=== PATIENT | male | born 1960 | race Caucasian/White ===

== ENCOUNTER 2020-05-21 12:16 | Outpatient (CLI) | payer BC, SELFPAY ==
--- NOTE | 2020-05-21 12:24 | ECHO_ITS ---
Patient Info Name: Dannie Calles Age: 59 years : 1960 Gender: Male Ht: 70 in Wt: 190 lbs BSA: 2.08 m2 HR: 77 bpm BP: 150 / 76 mmHg Heart Rhythm: Sinus Rhythm Technical Quality: Good Exam Date: 05/21/2020 11:30 AM Exam Location: [facility] Patient Status: Outpatient Admit Date: 05/21/2020 Staff Ordering Physician: Hao Hair MD Manager Payment: Deb Balderas RDCS Attending Provider: Hao Hair MD Exam Type: CA echo doppler color flow Study Info Indications R94.31 - Abnormal electrocardiogram ECG EKG Complete two-dimensional, color flow and Doppler transthoracic echocardiogram is performed. Strain analysis performed. History/Risk Factors Hypertension: No Dyslipidemia: No Congenital Heart Disease (CHD): No Peripheral Arterial Disease (PAD): No Myocardial Infarction (VT): No Chronic Lung Disease: No Obesity: No Renal Disease: No Coronary Artery Disease (CAD) No Congestive Heart Failure (CHF): No Cardiomyopathy/LV Systolic Dysfunction: No Diabetes Mellitus: No COPD: No Tobacco Use: Never Cerebrovascular Disease: No Family History: Diabetes Mellitus Deep Vein Thrombosis (DVT): None Dialysis: None Frailty Scale (CSHA): 1: Very Fit Cardiac Arrest: No Summary 1. Complete two-dimensional, color flow and Doppler transthoracic echocardiogram is performed. 2. Left ventricular chamber dimension is normal. 3. Left ventricular systolic function is normal, estimated at 60-65%. 4. There is mildly increased left ventricular wall thickness. 5. The left ventricular diastolic function is grade II diastolic dysfunction. 6. E/e' 10 is mildly elevated. 7. Global longitudinal strain is abnormal at -14.6%. 8. Left atrial chamber dimension is mildly enlarged. 9. There is trace tricuspid valve regurgitation. 10. No pulmonary hypertension, estimated pulmonary arterial systolic pressure is 27 mmHg. Left Ventricle E/e' 10 is mildly elevated. Global longitudinal strain is abnormal at -14.6%. Left ventricular chamber dimension is normal. Left ventricular systolic function is normal, estimated at 60-65%. There is mildly increased left ventricular wall thickness. The left ventricular diastolic function is grade II diastolic dysfunction. Right Ventricle Right ventricular chamber dimension is normal. Right ventricular systolic function is normal. Left Atria Left atrial chamber dimension is mildly enlarged. Right Atria Right atrial chamber dimension is normal. Aortic Valve The aortic valve is trileaflet. There is no aortic valve stenosis. There is no aortic valve regurgitation. Pulmonic Valve There is no pulmonic regurgitation. Mitral Valve There is no mitral valve stenosis. There is no mitral valve regurgitation. Tricuspid Valve There is trace tricuspid valve regurgitation. No pulmonary hypertension, estimated pulmonary arterial systolic pressure is 27 mmHg. Pericardium/Pleural There is no pericardial effusion. Inferior Vena Cava Normal inferior vena cava with >50% collapse upon inspiration consistent with normal right atrial pressure, 5 mmHg. Aorta The aortic root size at the sinus of Valsalva is normal. Left Ventricular Outflow Tract Name Value Normal
== END 2020-05-21 12:17 | disposition home or self-care (01) ==
LOC: CHSIMG 12:18
PROVIDERS: PCP Internal Medicine; Visit Provider Internal Medicine
DX: R94.31 Abnormal electrocardiogram [ECG] [EKG] (principal); I10 Essential (primary) hypertension
CPT/HCPCS: 93306

== ENCOUNTER 2020-06-17 08:17 | Outpatient (CLI) | payer BC, SELFPAY ==
--- NOTE | ~2020-06-17 | MR_ITS ---
EXAMINATION: MR brain/brain stem wo con DATE: 06/17/2020 08:54 INDICATION: Headache. TECHNIQUE: Magnetic resonance imaging (MRI) of the brain and brainstem was performed without intraven ous contrast. Sequences included sagittal and axial T1-weighted FSE, axial diffusion-weighted FS EPI, axial T2*-weighted GRE, axial T2-weighted FLAIR Propeller, and axial T2-weighted Propeller. Apparent diffusion coefficient (ADC) maps were created. COMPARISON: None. FINDINGS: There are 2 punctate foci of nonspecific increased T2-weighted signal intensity in the cere bral white matter, which is within normal limits for the patient's age. There is no intracranial hemo rrhage, acute infarction, or abnormal intracranial mass lesion. The ventricles are normal in size. Th ere is mucosal thickening in the paranasal sinuses. There are small bilateral mastoid effusions. The orbits are normal. IMPRESSION: 1. Normal brain. Reviewed, dictated and finalized at location A. IMPRESSION: 1. Normal brain.
== END 2020-06-17 08:18 | disposition home or self-care (01) ==
PROVIDERS: PCP Internal Medicine; Visit Provider Internal Medicine
DX: R51.9 Headache, unspecified (principal)
CPT/HCPCS: 70551

== ENCOUNTER 2021-02-22 09:57 | Outpatient (CLI) | payer BC, SELFPAY ==
[2021-02-22 10:49] LABS: Influenza A QL RT-PCR Negative (Negative); Influenza B QL RT-PCR Negative (Negative); SARS-CoV-2 RNA PCR Negative (Negative)
== END 2021-02-22 09:58 | disposition home or self-care (01) ==
PROVIDERS: PCP Internal Medicine; Visit Provider Internal Medicine
DX: J06.9 Acute upper respiratory infection, unspecified (principal)
CPT/HCPCS: 87502; C9803; U0003; U0005

== ENCOUNTER 2021-03-08 14:59 | Outpatient (CLI) | payer BC, SELFPAY ==
[2021-03-08 17:13] LABS: Influenza A QL RT-PCR Negative (Negative); Influenza B QL RT-PCR Negative (Negative); SARS-CoV-2 RNA PCR Positive (Negative)
== END 2021-03-08 15:00 | disposition home or self-care (01) ==
LOC: CHSLAB 15:02
PROVIDERS: PCP Internal Medicine; Visit Provider Internal Medicine
DX: U07.1 COVID-19 (principal)
CPT/HCPCS: 87502; C9803; U0003; U0005

== ENCOUNTER 2021-04-13 13:53 | Outpatient (CLI) | payer BC, SELFPAY ==
--- NOTE | ~2021-04-13 | XR_ITS ---
EXAMINATION: XR shoulder RT min 2V EXAM DATE: 04/13/2021 14:16 INDICATION: Fall On Ice 04/12/2021 Pain To Shoulder And Unable To . TECHNIQUE: The following right shoulder projections obtained: frontal projection with internal rotati on, frontal projection with external rotation, Grashey, and scapular Y view (4+ views). There is no prior study for comparison. FINDINGS: There is mild glenohumeral joint, moderate acromioclavicular joint primary osteoarthritis. Slightly abrupt contour at the greater tuberosity, possible acute closed posttraumatic nondisplaced f racture. Glenoid is unremarkable. There is no subcutaneous gas. The soft tissue is unremarkable. T here are no radiopaque foreign bodies. IMPRESSION: Possible greater tuberosity fracture; CT scan without contrast recommended. Reviewed, dictated and finalized at location B. L[employer]ER IMPRESSION: Possible greater tuberosity fracture; CT scan without contrast laney mmended.
== END 2021-04-13 13:54 | disposition home or self-care (01) ==
LOC: CHSIMG 13:56
PROVIDERS: PCP Internal Medicine; Visit Provider Internal Medicine
DX: M25.511 Pain in right shoulder (principal)
CPT/HCPCS: 73030

== ENCOUNTER 2023-05-11 09:54 | Outpatient (CLI) | payer BC, SELFPAY ==
[2023-05-11 10:10] LABS: Basophils Absolute Auto 0.05 K/mm3 (0.00-0.10); Basophils Percent Auto 0.8 % (0.0-1.0); Eosinophils Absolute Auto 0.17 K/mm3 (0.02-0.50); Eosinophils Percent Auto 2.7 % (1.0-6.0); Immature Granulocyte Absolute 0.02 K/mm3 (0.00-0.00); Immature Granulocyte Percent A 0.3 % (0.0-0.0); Lymphocytes Absolute Auto 2.09 K/mm3 (1.10-4.50); Lymphocytes Percent Auto 32.8 % (18.0-42.0); Mean Corpuscular HGB Conc 34.1 g/dL (32.0-36.0); Mean Corpuscular Hemoglobin 30.2 pg (27.0-31.0); Mean Corpuscular Volume 88.5 fL (78.0-102.0); Mean Platelet Volume 8.7 fl (8.7-11.0); Monocytes Percent Auto 9.4 % (2.0-11.0); Neutrophils Absolute Auto 3.5 K/mm3 (1.7-7.2); Platelet Count Result 262 K/mm3 (150-420); Red Blood Count 4.97 M/mm3 (4.70-6.10); White Blood Count 6.4 K/mm3 (4.8-10.8)
[2023-05-11 10:11] LABS: Appearance Urine Clear (Clear); Bilirubin Urine Negative (Negative); Blood Urine Negative (Negative); Color Urine Light Yellow (Yellow); Glucose Urine UA Negative (Negative); Ketones Urine Negative (Negative); Leukocyte Esterase Ur Negative (Negative); Nitrate Urine Negative (Negative); Protein Urine Negative (Negative); Urobilinogen Urine 0.2 mg/dL (0.2-1.0)
[2023-05-11 10:19] LABS: Add Urine Microscopic? NO
[2023-05-11 11:28] LABS: Alanine Aminotransferase 63 U/L (16-63); Albumin Level 3.9 g/dL (3.4-5.0); Alkaline Phosphatase 113 U/L (46-116); Anion Gap 10 mmol/L (8-16); Aspartate Amino Transferase 24 U/L (15-37); Bilirubin,Total 1.3 mg/dL (0.00-1.00); Blood Urea Nitrogen 17 mg/dL (7-18); Carbon Dioxide 28 mmol/L (21-32); Chloride 103 mmol/L (98-108); Cholesterol 197 mg/dL (0-200); Estimated Glomerular Filt Rate > 60; Glucose 91 mg/dL (70-99); HDL Direct 65 mg/dL (40-60); LDL Cholesterol Calculated 120 mg/dL (<130); Osmolality Calculated 293 mOsm/kg (285-295); Potassium 4.4 mmol/L (3.5-5.1); Prostate Specific Antigen 1.3 ng/mL (< OR = 4.0); Sodium 141 mmol/L (136-145); Total Protein 6.9 g/dL (6.4-8.2); Triglycerides 61 mg/dL (0-150)
[2023-05-14 19:56] LABS: Hepatitis A Antibody IgM Nonreactive; Hepatitis B Core Antibody Nonreactive (Nonreactive); Hepatitis B Surface Antigen Nonreactive (Nonreactive); Hepatitis C Virus Antibody Nonreactive
== END 2023-05-11 09:55 | disposition home or self-care (01) ==
PROVIDERS: PCP Internal Medicine; Visit Provider Internal Medicine
DX: Z00.00 Encounter for general adult medical examination without abnormal findings (principal); I10 Essential (primary) hypertension; R94.5 Abnormal results of liver function studies
CPT/HCPCS: 36415; 80053; 80061; 80074; 81003; 84153; 85025; G0103

== ENCOUNTER 2024-01-30 01:12 | Day surgery (SDC) | payer BC, SELFPAY ==
[2024-01-17 08:22] VITALS: BMI 26.9
[2024-01-30 09:39] VITALS: BP 145/86; PULSE 58; RESP 18; TEMP 35.9; O2SAT 96
[2024-01-30] MEDS: LACTATED RINGERS 1,000 ML 150 ML IV CONT (09:49)
--- NOTE | 2024-01-30 10:36 | PM.IMHP ---
H&P: HPI History of Present Illness Date/Time: 01/30/24 10:36 Chief Complaint: History of colon polyps Narrative: this is a 63-year-old man who presents for colonoscopy. His last colonoscopy was about 7 years ago. He denies any hematochezia or melena. He denies family history of colon cancer. Review of Systems Review of Systems: All systems reviewed & are unremarkable except as noted in HPI and below Constitutional: Constitutional: Denies chills, Denies fever(s), Denies headache(s) and Denies weight loss Eyes: Eyes: Denies change in vision ENT: Denies dizziness, Denies headache(s), Denies neck mass and Denies throat swelling Cardiovascular: Cardiovascular: Denies chest pain, Denies lightheadedness and Denies dyspnea Respiratory: Respiratory: Denies cough, Denies dyspnea and Denies wheezing Gastrointestinal: Gastrointestinal: Denies abdominal pain, Denies change in bowel habits, Denies nausea and Denies vomiting Genitourinary: Genitourinary: Denies hematuria and Denies dysuria Musculoskeletal: Musculoskeletal: Reports as per HPI Integumentary/Breasts: Skin/Breast: Reports as per HPI Neurologic: Denies dizziness and Denies headache(s) Allergic/Immunologic: Allergic/Immunologic: Denies throat swelling and Denies wheezing PMFSH Social History Social History Smoking status: Never smoker Alcohol intake: current Drinks per week: 4 Alcohol use details: Wine, beer Substance use: never Substance use type: does not use Living arrangements: alone Spiritual care concerns: No Meds Home Medications and Allergies Home Medications Medication Instructions Recorded Confirmed Type telmisartan 80 mg tablet 80 mg PO DAILY 01/17/24 01/30/24 History Allergies Allergy/AdvReac Type Severity Reaction Status Date / Time No Known Allergies Allergy Verified 01/30/24 09:37 Vital Signs Vital Signs - 24 hr 01/30/24 09:39 Temperature 96.7 F L Pulse Rate 58 L Respiratory Rate 18 Blood Pressure 145/86 H Pulse Oximetry 96 Oxygen Delivery Room Air Exam Const: General: no acute distress and alert Orientation/consciousness: patient oriented x3 HENMT: Head: normocephalic and atraumatic Ears: hearing grossly normal bilaterally Face/Nose/Sinus: Normal nares present Mouth: Yes Normal oral and palatal mucosa present Eyes: Periorbital: periorbital findings normal Sclera: sclerae normal EOM: EOMs intact bilaterally Neck: Neck: normal visual inspection, no lymphadenopathy and trachea midline Chest: Chest palpation & inspection: normal inspection of the chest Resp: Effort & Inspection: normal respiratory effort Auscultation: clear to auscultation bilaterally Cardio: Jugular venous distension: no JVD Rate: regular rate Rhythm: regular rhythm Heart sounds: S1 normal heart sound present and S2 normal heart sound present Peripheral pulses: Peripheral pulses 2+ throughout GI: Inspection: normal to inspection GI Palp: Yes Soft to palpation, No Tenderness to palpation present (GI), No Guarding due to palpation present (GI) and No Rebound tenderness present Percussion: Yes normal to percussion Auscultation: normal bowel sounds : General: Yes no CVA tenderness Back/Spine/Pelvis: Back: no CVA tenderness Neuro: General: patient oriented x3, no focal motor deficits and CN's II-XI intact bilaterally Cognition (Neuro): normal cognition Speech: normal speech Motor exam (neuro): 5/5 motor strength present throughout Extrem: General: capillary refill normal and no clubbing, cyanosis or edema Assessment and Plan Assessment and plan (1) Hx of colonic polyps: Code(s): Z86.0100 - Personal history of colon polyps, unspecified Status: Acute Assessment and Plan: I have recommended colonoscopy. I have discussed the procedure, risks, benefits, and alternatives. Questions were answered. Patient is agreeable to proceed.
--- NOTE | 2024-01-30 10:47 | P.PNAN_ITS ---
Anes - Initial Pre Proc Eval Procedure: Operation Date: 01/30/24 10:30 Proposed Procedures p Screening Colonoscopy - Tacho Awad DO Date/Time: 01/30/24 10:47 Surgeon: Tacho Awad DO Pre Op Diagnosis: Screening for malignant neoplasm of colon Patient Data Age: 63 Gender: M Height: 1.78 m Weight: 87.3 kg Last Vital Signs Temp 96.7 F L 01/30/24 09:39 Pulse 58 L 01/30/24 09:39 Resp 18 01/30/24 09:39 BP 145/86 H 01/30/24 09:39 Pulse Ox 96 01/30/24 09:39 O2 Del Method Room Air 01/30/24 09:39 Allergies Allergy/AdvReac Type Severity Reaction Status Date / Time No Known Allergies Allergy Verified 01/30/24 09:37 Home Medications Medication Instructions Recorded Confirmed Type telmisartan 80 mg tablet 80 mg PO DAILY 01/17/24 01/30/24 History Patient hx anesthesia problems: none Family hx anesthesia problems: none Results Review: All pre-operative results and documents have been reviewed as part of the pre- operative evaluation. [facility] Social History Social History Smoking status: Never smoker Alcohol intake: current Drinks per week: 4 Alcohol use details: Wine, beer Substance use: never Substance use type: does not use Living arrangements: alone Spiritual care concerns: No Anes - Eval Final PreProcedure Day of Procedure 01/30/24 10:47 Patient weight: normal Heart: regular rate and rhythm Lungs: clear to auscultation Airway: Mallampati scale class II Neurological: alert and oriented Last oral intake: >/= 8 hours ASA classification: II Emergent: no Anesthetic plan: proceed Anesthesia type and monitoring: general GIVS and standard monitoring Results Review: All pre-operative results and documents have been reviewed as part of the pre- operative evaluation. Informed Consent: The patient's anesthetic plan and its attendant risks and benefits were discussed with the patient/family/POA. Questions were solicited and answers provided to the satisfaction of the patient/family/POA.
[2024-01-30 11:01] VITALS: BP 125/75; PULSE 67; RESP 18; O2SAT 99
[2024-01-30 11:11] VITALS: BP 127/73; PULSE 63; RESP 18; O2SAT 99
[2024-01-30 11:21] VITALS: BP 132/70; PULSE 63; RESP 20; O2SAT 99
== END 2024-01-30 11:35 | disposition home or self-care (01) ==
PROVIDERS: PCP Internal Medicine; Visit Provider Surgery
PROC: 0DJD8ZZ Inspection of Lower Intestinal Tract, Via Natural or Artificial Opening Endoscopic (ICD-10-PCS; CPT 45378; principal; 2024-01-30 10:30)
DX: Z12.11 Encounter for screening for malignant neoplasm of colon (principal); K57.30 Diverticulosis of large intestine without perforation or abscess without bleeding; Z86.0100 Personal history of colon polyps, unspecified
CPT/HCPCS: 45378; J2003; J2704; J7120